=== PATIENT | male | born 1980 | race Caucasian/White ===

== ENCOUNTER 2018-05-27 17:03 | Emergency (ER) | payer SELFPAY ==
[2018-05-27] MEDS ORDERED: KETOROLAC 60 MG INJ IM (20:18)
[2018-05-27] MEDS ORDERED: DIPHENHYDRAMINE 50 MG CAP PO (20:30)
== END 2018-05-27 20:36 | disposition home or self-care (01) ==
LOC: FTE 17:03
DX: R21 Rash and other nonspecific skin eruption (principal)
CPT/HCPCS: 99283